=== PATIENT | male | born 1980 | race Caucasian/White ===

== ENCOUNTER 2016-06-03 08:24 | Emergency (ER) | payer BC, OTHER ==
[~2016-06-03] VITALS: Ht 180.3 cm; Wt 95.3 kg
[2016-06-03 08:34] VITALS: BP 137/89; PULSE 89; RESP 16; TEMP 98.2; O2SAT 99
--- NOTE | 2016-06-03 08:36 | NUR ---
Pt report received from Sean RN. Pt c/o LUQ abd pain that radiates to Left back. Pt denies urinary problems, LBM yesterday. Pt c/o nausea.
--- NOTE | 2016-06-03 08:36 | NUR ---
AMBULATED TO [facility]
[2016-06-03] MEDS ORDERED: MORPHINE 4 MG/ML INJ. SYRINGE IVP ONE (08:45)
[2016-06-03] MEDS ORDERED: KETOROLAC TROMETHAMINE 30 MG VIAL IVP ONE (08:45)
[2016-06-03] MEDS ORDERED: DIPHENHYDRAMINE INJ 50 MG/ML VIAL IVP ONE (08:45)
--- NOTE | 2016-06-03 09:00 | NUR ---
Dr. Ayala at bedside to assess pt.
[2016-06-03 09:22] LABS: BASOPHILS % (AUTO) 0.3 % (0.0-2.0); EOSINOPHILS # (AUTO) 0.1 K/uL (0.0-0.4); EOSINOPHILS % (AUTO) 1.2 % (0.0-4.0); HEMATOCRIT 46.8 % (36-54); HEMOGLOBIN 15.2 g/dL (14.0-18.0); LYMPHOCYTES # (AUTO) 1.5 K/uL (1.0-5.5); LYMPHOCYTES % (AUTO) 27.7 % (20.5-51.5); MEAN CORPUSCULAR HEMOGLOBIN 29 pg (27-31); MEAN CORPUSCULAR HGB CONC 33 % (32-36); MEAN CORPUSCULAR VOLUME 89 fL (79.0-98.0); MONOCYTES # (AUTO) 0.3 K/uL (0.0-1.0); MONOCYTES % (AUTO) 6.3 % (1.7-9.3); NEUTROPHILS # (AUTO) 3.6 K/uL (1.8-7.7); NEUTROPHILS % (AUTO) 64.5 % (40.0-70.0); PLATELET COUNT (AUTO) 171 K/uL (130-430); RED BLOOD CELL COUNT(AUTO) 5.28 MIL/uL (4.2-6.2); RED CELL DISTRIBUTION WIDTH 11.4 % (9.0-15.0); WHITE BLOOD COUNT (AUTO) 5.5 K/uL (4.8-10.8)
[2016-06-03 09:33] LABS: CALCIUM 9.1 mg/dL (8.4-11.0); CREATININE 1.31 mg/dL (0.55-1.30); PROTHROMBIN TIME 10.8 SECS (9.5-12.5)
[2016-06-03 09:37] LABS: ALBUMIN 4.3 g/dL (3.4-4.8); TOTAL BILIRUBIN 0.4 mg/dL (0.0-1.0); TOTAL PROTEIN, SERUM 7.8 g/dL (6.4-8.3)
[2016-06-03 10:10] VITALS: BP 131/78; PULSE 85; RESP 16; O2SAT 99
--- NOTE | 2016-06-03 10:15 | NUR ---
mom here to take pt home and Patient given written and verbal discharge instructions and verbalizes understanding. ER MD discussed with patient the results and treatment provided. Given copies of tests performed in ER. Patient in stable condition. ID arm band removed. IV catheter removed intact and dressing applied, no active bleeding. Rx of norco, motrin given. Patient educated on pain management and to follow up with PMD. Pain Scale 0/10 Opportunity for questions provided and answered.
== END 2016-06-03 10:15 | disposition home or self-care (01) ==
LOC: SED 08:24
DX: N13.2 Hydronephrosis with renal and ureteral calculous obstruction (principal)
CPT/HCPCS: 36415; 71010; 74176; 80053; 83605; 83690; 85025; 85610; 87040; 93005; 96374; 96375; 99285; J1200; J1885; J2270